=== PATIENT | male | born 1990 | race Caucasian/White ===

== ENCOUNTER 2017-03-23 18:40 | Emergency (ER) | payer OTHER ==
[2017-03-23 18:54] VITALS: BP 159/97
--- NOTE | 2017-03-23 19:55 | EDM.PDOC ---
ED HPI GENERAL MEDICAL PROBLEM - General Chief Complaint: Upper Extremity Injury/Pain Stated Complaint: RIGHT ARM INJURY Time Seen by Provider: 03/23/17 19:00 Source of Information: Reports: Patient History Limitations: Reports: No Limitations - History of Present Illness INITIAL COMMENTS - FREE TEXT/NARRATIVE: 26 year old male presents for evaluation and treatment of an injury to the right arm. Injury occurred yesterday. Reports he was bowling. Patient bowels right handed. Reports at one point he was bowling and felt a pop in his arm and immediate pain. Report pain to the anterior, distal arm, weakness and decreased ROM. No numbness or tingling to the arm. No obvious deformity. Patient is left handed. Right Arm Pain Score (Numeric/FACES): 7 - Related Data Allergies Allergy/AdvReac Type Severity Reaction Status Date / Time No Known Allergies Allergy Verified 03/23/17 18:50 Home Meds: Home Meds Escitalopram [Lexapro] 20 mg PO DAILY 03/23/17 [History] Zolpidem Tartrate [Zolpidem Tartrate ER] 12.5 mg PO BEDTIME 03/23/17 [History] Past Medical History - Past Health History Medical/Surgical History: Denies Medical/Surgical History Psychiatric History: Reports: Anxiety, Depression Social & Family History - Tobacco Use Smoking Status *Q: Never Smoker - Recreational Drug Use Recreational Drug Use: No Review of Systems - Review of Systems Review Of Systems: See Below Musculoskeletal: Reports: Arm Pain (right anterior, distal arm), Other (no obvious deformity; reports weakness and decreased ROM with the right arm) Skin: Denies: Bruising, Wound Neurological: Denies: Numbness, Tingling ED EXAM, GENERAL - Physical Exam Exam: See Below Exam Limited By: No Limitations General Appearance: Alert, WD/WN, No Apparent Distress Throat/Mouth: Normal Inspection, Normal Voice, No Airway Compromise Neck: Normal Inspection, Supple, Non-Tender Respiratory/Chest: No Respiratory Distress, Lungs Clear, Normal Breath Sounds Cardiovascular: Normal Peripheral Pulses, Regular Rate, Rhythm, No Murmur Peripheral Pulses: 2+: Radial (L), Radial (R) Extremities: Normal Inspection, Normal Capillary Refill, Limited Range of Motion (pain with supination and pronation of the right arm; pain with flexion and extension of the right arm), Other (no obvious deformity appreciated) Neurological: Alert, Oriented, Normal Cognition Psychiatric: Normal Affect, Normal Mood Skin Exam: Warm, Dry, Normal Color. No: Ecchymosis, Erythema Course - Vital Signs Last Recorded V/S: Last Vital Signs Temp 36.7 C 03/23/17 18:51 Pulse 120 H 03/23/17 18:51 Resp BP 159/97 H 03/23/17 18:51 Pulse Ox 97 03/23/17 18:51 - Radiology Interpretation Free Text/Narrative:: xray of the right humerus shows no acute fractures or dislocations. - Re-Assessments/Exams Free Text/Narrative Re-Assessment/Exam: 03/23/17 19:50 I reviewed the xray results with the patient. I feel he likely has a partial biceps tendon rupture. Also possible he may have biceps tendonitis given the repetitive motion of bowling. I will place him in an arm sling and have him follow up with orthopedics. Departure - Departure Time of Disposition: 19:53 Disposition: Home, Self-Care 01 Condition: Good Clinical Impression: Traumatic partial tear of biceps tendon - Discharge Information Instructions: Biceps Tendon Disruption (Proximal) With Rehab-[facility] Referrals: Ivory Thakkar PA [Primary Care Provider] - Jacobo Buchanan MD [Physician] - Forms: ED Department Discharge Additional Instructions: Wear the arm sling at all times. Remove the arm from the sling 3 or 4 times a day and perform pendulum arm circles prevent frozen shoulder. [id number] Tylenol or Motrin as needed for pain relief. make sure you are icing the area. Follow up with orthopedics this week. Recommend [facility]. Please call to schedule with Dr. Rollins. Please return to the ER if your symptoms change or worsen.
--- NOTE | 2017-03-24 10:24 | CR ---
Right humerus: Two views of the right humerus were obtained. Technique is somewhat less than optimal. Within this limitation, no discrete fracture or other abnormality is appreciated. No soft tissue calcifications are present. Impression: 1. Less than optimal study. Nothing acute is definitely seen within the humerus. Diagnostic code #2
== END 2017-03-23 20:10 | disposition home or self-care (01) ==
LOC: JD.ED 18:40
DX: S46.211A Strain of muscle, fascia and tendon of other parts of biceps, right arm, initial encounter (principal); Z79.899 Other long term (current) drug therapy; X50.1XXA Overexertion from prolonged static or awkward postures, initial encounter
CPT/HCPCS: 73060-26-RT; 73060-RT; 99283; 99284

== ENCOUNTER 2017-04-17 07:28 | Day surgery (SDC) | payer OTHER ==
[~2017-04-17 07:28] MED LIST: Lidocaine 1%/Sod Bicarbonate in NS 8.4% 1 ML Syringe IV PRN; Sodium Chloride 0.9% 10 ML Syringe FLUSH PRN
[2017-04-17] MEDS: Lactated Ringers 1,000 ML IV SCH ×2 (07:45→12:15)
--- NOTE | 2017-04-17 08:08 | PCM.PREANE ---
Preanesthetic Assessment - Procedure Proposed Procedure: Right distal bicep tendon repair - Anesthesia/Transfusion/Family Hx Anesthesia History: No Prior Anesthesia Family History of Anesthesia Reaction: No Transfusion History: No Prior Transfusion(s) - Review of Systems General: No Symptoms Pulmonary: No Symptoms Cardiovascular: Other (HTN ) Gastrointestinal: No Symptoms Neurological: No Symptoms Other: Reports: Easy Bruising, Depression, Anxiety - Physical Assessment NPO Status Date: 04/16/17 NPO Status Time: 22:00 Pulse: 81 O2 Sat by Pulse Oximetry: 95 Respiratory Rate: 16 Blood Pressure: 147/76 Temperature: 37.2 C Height: 1.85 m Weight: 124 kg ASA Class: 2 Mental Status: Alert & Oriented x3 Airway Class: Mallampati = 1 Dentition: Reports: Normal Dentition Thyro-Mental Finger Breadths: 3 Mouth Opening Finger Breadths: 3 ROM/Head Extension: Full Lungs: Clear to Auscultation, Normal Respiratory Effort Cardiovascular: Regular Rate, Regular Rhythm - Lab Values: Laboratory Last Values MRSA (PCR) Negative 04/15/17 16:25 - Allergies Allergies/Adverse Reactions: Allergies Allergy/AdvReac Type Severity Reaction Status Date / Time No Known Allergies Allergy Verified 04/16/17 12:40 - Blood Blood Available: No Product(s) Available: None - Anesthesia Plan Pre-Op Medication Ordered: None - Acknowledgements Anesthesia Type Planned: General Anesthesia (OETT) Pt an Appropriate Candidate for the Planned Anesthesia: Yes Alternatives and Risks of Anesthesia Discussed w Pt/Guardian: Yes Pt/Guardian Understands and Agrees with Anesthesia Plan: Yes PreAnesthesia Questionnaire - Past Health History Medical/Surgical History: Denies Medical/Surgical History HEENT History: Reports: None Cardiovascular History: Reports: Hypertension Respiratory History: Reports: Sleep Apnea Other Respiratory History: self diagnosed sleep apnea Gastrointestinal History: Reports: Other (See Below) Other Gastrointestinal History: increased liver enzymes Genitourinary History: Reports: Other (See Below) Other Genitourinary History: erectile dysfunction 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 Musculoskeletal History: Reports: Other (See Below) Other Musculoskeletal History: biceps tendon rupture, right elbow pain Neurological History: Reports: None Psychiatric History: Reports: Anxiety, Depression, Other (See Below) Other Psychiatric History: insomnia Endocrine/Metabolic History: Reports: None Hematologic History: Reports: None Immunologic History: Reports: None Oncologic (Cancer) History: Reports: None Dermatologic History: Reports: Other (See Below) Other Dermatologic History: dyshydrosis - Past Surgical History Head Surgeries/Procedures: Reports: None HEENT Surgical History: Reports: None Cardiovascular Surgical History: Reports: None Respiratory Surgical History: Reports: None GI Surgical History: Reports: None Female Surgical History: Reports: None Male Surgical History: Reports: None Endocrine Surgical History: Reports: None Neurological Surgical History: Reports: None Musculoskeletal Surgical History: Reports: None Oncologic Surgical History: Reports: None - SUBSTANCE USE Smoking Status *Q: Never Smoker Second Hand Smoke Exposure: No Recreational Drug Use History: No - HOME MEDS Home Medications: Home Meds Escitalopram [Lexapro] 20 mg PO DAILY 03/23/17 [History] Ibuprofen 800 mg PO Q6H PRN 04/16/17 [History] Multivitamin [Poly-Vitamin] 1 tab PO DAILY 04/16/17 [History] Zolpidem Tartrate [Zolpidem Tartrate ER] 12.5 mg PO BEDTIME PRN 04/16/17 [ History] - CURRENT (IN HOUSE) MEDS Current Meds: Current Medications Lactated Ringer's (Ringers, Lactated) 1,000 mls @ 125 mls/hr IV ASDIRECTED JOANN Lidocaine/Sodium Bicarbonate (Buffered Lidocaine 1% In Ns 8.4%) 0.25 ml IV ONETIME PRN PRN Reason: Prior to IV Start Sodium Chloride (Saline Flush) 10 ml FLUSH ASDIRECTED PRN PRN Reason: Keep Vein Open
--- NOTE | 2017-04-17 08:42 | PCM48HPAN ---
Post Anesthesia Note - EVALUATION WITHIN 48HRS OF ANESTHETIC Vital Signs in Normal Range: Yes Patient Participated in Evaluation: Yes Respiratory Function Stable: Yes Airway Patent: Yes Cardiovascular Function Stable: Yes Hydration Status Stable: Yes Pain Control Satisfactory: Yes Nausea and Vomiting Control Satisfactory: Yes Mental Status Recovered: Yes
[2017-04-17] MEDS ORDERED: Midazolam 1 MG/ML 2 ML SDV ONE (09:02)
[2017-04-17] MEDS ORDERED: Propofol 200 MG/20 ML SDV ONE ×2 (09:02→09:10)
[2017-04-17] MEDS ORDERED: Ondansetron 4 MG/2 ML SDV ONE (09:03)
[2017-04-17] MEDS ORDERED: Lidocaine 1% 4 ML ONE (09:03)
[2017-04-17] MEDS ORDERED: methylPREDNISolone Sodium Succinate 125 MG/2 ML SDV ONE (09:03)
[2017-04-17] MEDS ORDERED: Rocuronium 50 MG/5 ML Vial ONE (09:03)
[2017-04-17] MEDS ORDERED: fentaNYL 250 MCG/5 ML SDV ONE (09:03)
[2017-04-17] MEDS ORDERED: ceFAZolin 1 GM Vial ONE (09:58)
[2017-04-17] MEDS ORDERED: Phenylephrine 1% 10 MG/ML SDV ONE (10:10)
[2017-04-17] MEDS: Bupivacaine 0.25% 30 ML SDV ONE ×2 (10:21→10:50)
[2017-04-17] MEDS ORDERED: Neostigmine Methylsulfate 1 MG/ML 5 ML Syringe ONE (11:02)
[2017-04-17] MEDS ORDERED: diphenhydrAMINE 50 MG/ML SDV IVPUSH PRN (11:18)
[2017-04-17] MEDS ORDERED: fentaNYL 100 MCG/2 ML SDV IVPUSH PRN (11:18)
[2017-04-17] MEDS ORDERED: HYDROmorphone 0.5 MG/0.5 ML Syringe IVPUSH PRN (11:18)
[2017-04-17] MEDS ORDERED: Ondansetron 4 MG/2 ML SDV IVPUSH PRN (11:18)
[2017-04-17] MEDS ORDERED: Meperidine PF 50 MG/ML Syringe IVPUSH PRN (11:18)
--- NOTE | 2017-04-17 11:21 | PCM.POSTAN ---
POST ANESTHESIA ASSESSMENT - MENTAL STATUS Mental Status: Alert, Oriented - VITAL SIGNS Pulse Rate: 98 SaO2: 98 Resp Rate: 20 Blood Pressure: 134/53 Temperature: 37.3 C - RESPIRATORY Respiratory Status: Respiratory Rate WNL, Airway Patent, O2 Saturation Stable, Supplemental Oxygen - CARDIOVASCULAR CV Status: Pulse Rate WNL, Blood Pressure Stable - GASTROINTESTINAL GI Status: No Symptoms - PAIN Pain Score: 0 - POST OP HYDRATION Hydration Status: Adequate & Stable
--- NOTE | 2017-04-17 11:44 | CR ---
Elbow: Five fluoroscopic spot views were obtained of the right elbow. Study obtained utilizing C-arm device. Finding shows biceps tendon repair with anchoring to the radius. Fluoroscopy time given as 16.0 seconds. Impression: 1. Operative study as noted above. Diagnostic code #2
[2017-04-17] MEDS ORDERED: Acetaminophen/HYDROcodone 325-5 MG Tab PO ONE (12:30)
[2017-04-17 14:29] VITALS: BP 148/68
--- NOTE | 2017-04-28 07:14 | PCM.OPNOTE ---
- General Post-Op/Procedure Note Date of Surgery/Procedure: 04/17/17 Operative Procedure(s): right distal biceps tendon repair Pre Op Diagnosis: right distal biceps tendon rupture Post-Op Diagnosis: Same Anesthesia Technique: General LMA, Local Primary Surgeon: Monico Mccarty Anesthesia Provider: Osman Eldridge Hospitality Workers: Sayda Martinez Hospitality Workers: Florence Langley EBRaine in mLs: 10 Complications: None Condition: Good
--- NOTE | 2017-04-28 08:32 | OR ---
DATE OF OPERATION: 04/17/2017 SURGEON: Monico Mccarty MD OPERATION PERFORMED: Right distal biceps tendon repair. PREOPERATIVE DIAGNOSIS: Right distal biceps tendon rupture. POSTOPERATIVE DIAGNOSIS: Right distal biceps tendon rupture. ANESTHESIA: General LMA with local. ANESTHESIA PROVIDER: Osman Eldridge. LECTURER IN COMPUTER SCIENCE: Florence Langley PA-C. ESTIMATED BLOOD LOSS: 10 mL. COMPLICATIONS: None. CONDITION: Stable. DESCRIPTION OF PROCEDURE: The patient was identified in the preop holding area. Proper site was marked and identified by the surgeon. The patient was taken back to the operating theater, where after adequate anesthesia, the patient's right upper extremity had a nonsterile tourniquet applied. It was then sterilely prepped and draped in the usual sterile fashion. OR-wide time-out was performed. The patient did receive 2 grams of IV Ancef. At this time, right upper extremity was exsanguinated. Tourniquet was insufflated to 225 mmHg. A standard transverse incision was made, centered over the distal biceps tendon radial tuberosity. Blunt dissection was taken down. The lateral antebrachial cutaneous nerve was retracted and protected. The distal biceps tendon was found to be stretched and only partially torn off its attachment. At this time, the attachment was completely detached and a whipstitch with a #2 FiberWire was placed through the end of the tendon after it had been shortened. At this time, a guidepin was placed in the old radial tuberosity roughly 30 degrees ulnar and 30 degrees distal angulation. This was then placed bi-cortically. An 8 mm reamer was then used just for the first cortex only. At this time, the EndoButton was loaded on the suture ends and it was placed through the far cortex and it was flipped. This tendon was then shuttled into the previous screw and a knot was tied over the top of the tendon. The 8 mm Arthrex interference screw was then placed pushing the tendon more radial. At this time, it was found to have adequate fixation with the interference screw. Another knot was tied over the top of the interference screw and, at this time, adequate saline was irrigated through the wound. 3-0 Vicryl was used for closure of the subcutaneous tissue and Monocryl was used for the skin. The patient was placed in a sterile soft dressing and a posterior slab splint. He tolerated the procedure well. MMODAL /[id number]
== END 2017-04-17 14:00 | disposition home or self-care (01) ==
LOC: JD.SDS 07:28
PROVIDERS: ATTEND Orthopaedic Surgery
DX: S46.211A Strain of muscle, fascia and tendon of other parts of biceps, right arm, initial encounter (principal); M25.521 Pain in right elbow; I10 Essential (primary) hypertension; F41.9 Anxiety disorder, unspecified; G47.00 Insomnia, unspecified; F32.9 Major depressive disorder, single episode, unspecified; G47.30 Sleep apnea, unspecified; N52.9 Male erectile dysfunction, unspecified; R94.5 Abnormal results of liver function studies; Z79.899 Other long term (current) drug therapy; Z87.891 Personal history of nicotine dependence
CPT/HCPCS: 24342; 36415; 76000; 85025; 85610; 87641; A9270; C1776; J0690; J1170; J2250; J2370; J2405; J2710; J2930; J3010; J3490; J7120; 01710; J2704

== ENCOUNTER 2017-10-19 09:14 | Emergency (ER) | payer OTHER ==
[2017-10-19 09:23] VITALS: BP 145/73
--- NOTE | 2017-10-19 10:00 | EDM.PDOC ---
ED HPI GENERAL MEDICAL PROBLEM - General Chief Complaint: Upper Extremity Injury/Pain Stated Complaint: LT ARM INJURY PT STS TORN BICEP Time Seen by Provider: 10/19/17 09:35 Source of Information: Reports: Patient, RN Notes Reviewed - History of Present Illness INITIAL COMMENTS - FREE TEXT/NARRATIVE: 27-year-old male injured left biceps in a weightlifting competition yesterday afternoon. He was lifting about 650 pounds. He felt a sudden snap or pop of the left arm with sudden onset of pain left lower anterior biceps area of arm. The pain continues today. He has good range of motion but that does cause discomfort left anterior lower arm. Left Arm Pain Score (Numeric/FACES): 6 - Related Data Allergies Allergy/AdvReac Type Severity Reaction Status Date / Time No Known Allergies Allergy Verified 04/16/17 12:40 Home Meds: Home Meds Escitalopram [Lexapro] 20 mg PO DAILY 03/23/17 [History] Ibuprofen 800 mg PO Q6H PRN 04/16/17 [History] Multivitamin [Poly-Vitamin] 1 tab PO DAILY 04/16/17 [History] Zolpidem Tartrate [Zolpidem Tartrate ER] 12.5 mg PO BEDTIME PRN 04/16/17 [ History] traMADol [Ultram] 50 mg PO Q6H PRN #20 tab 10/19/17 [Rx] Past Medical History - Past Health History Medical/Surgical History: Denies Medical/Surgical History HEENT History: Reports: None Cardiovascular History: Reports: Hypertension Respiratory History: Reports: Sleep Apnea Other Respiratory History: self diagnosed sleep apnea Gastrointestinal History: Reports: Other (See Below) Other Gastrointestinal History: increased liver enzymes Genitourinary History: Reports: Other (See Below) Other Genitourinary History: erectile dysfunction 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 Musculoskeletal History: Reports: Other (See Below) Other Musculoskeletal History: biceps tendon rupture, right elbow pain Neurological History: Reports: None Psychiatric History: Reports: Anxiety, Depression, Other (See Below) Other Psychiatric History: insomnia Endocrine/Metabolic History: Reports: None Hematologic History: Reports: None Immunologic History: Reports: None Oncologic (Cancer) History: Reports: None Dermatologic History: Reports: Other (See Below) Other Dermatologic History: dyshydrosis - Past Surgical History Head Surgeries/Procedures: Reports: None HEENT Surgical History: Reports: None Cardiovascular Surgical History: Reports: None Respiratory Surgical History: Reports: None GI Surgical History: Reports: None Male Surgical History: Reports: None Endocrine Surgical History: Reports: None Neurological Surgical History: Reports: None Musculoskeletal Surgical History: Reports: None Oncologic Surgical History: Reports: None Social & Family History - Family History Family Medical History: Noncontributory - Tobacco Use Smoking Status *Q: Never Smoker Second Hand Smoke Exposure: No - Caffeine Use Caffeine Use: Reports: Energy Drinks - Recreational Drug Use Recreational Drug Use: No Review of Systems - Review of Systems Review Of Systems: See Below Constitutional: Reports: No Symptoms Mouth/Throat: Reports: No Symptoms Respiratory: Denies: Shortness of Breath Cardiovascular: Denies: Chest Pain GI/Abdominal: Denies: Nausea, Vomiting Musculoskeletal: Reports: Arm Pain, Muscle Pain (Left lower biceps) Skin: Reports: No Symptoms ED EXAM, GENERAL - Physical Exam Exam: See Below General Appearance: Alert, No Apparent Distress Head: Atraumatic Respiratory/Chest: No Respiratory Distress Extremities: Other (There is some localized tenderness and a palpable deformity , loss of fullness left lower anterior biceps. He does have good range of motion , good flexion strength but that does cause increased discomfort. No bruising visible, no visible swelling at this point.) Neurological: No Motor/Sensory Deficits Course - Vital Signs Last Recorded V/S: Last Vital Signs Temp 98.6 F 10/19/17 09:21 Pulse 93 10/19/17 09:21 Resp 18 10/19/17 09:21 BP 145/73 H 10/19/17 09:21 Pulse Ox 97 10/19/17 09:21 - Re-Assessments/Exams Free Text/Narrative Re-Assessment/Exam: 10/19/17 10:34 He has a tear of what appears to be the distal muscle left biceps, have ordered an MRI, discharge instructions as documented. Departure - Departure Time of Disposition: 09:56 Disposition: Home, Self-Care 01 Condition: Fair Clinical Impression: Biceps muscle tear Qualifiers: Encounter type: initial encounter Laterality: left Qualified Code(s): S46.112A - Strain of muscle, fascia and tendon of long head of biceps, left arm, initial encounter - Discharge Information Prescriptions: traMADol [Ultram] 50 mg PO Q6H PRN #20 tab PRN Reason: Pain Referrals: PCP,Unknown [Ordering Only Provider] - Forms: ED Department Discharge Additional Instructions: Left arm sling or arm cradle as needed for comfort or support, rest arm, intermittent ice packs as needed for swelling, no heavy lifting left arm, Tylenol 3-4 times daily as needed for discomfort, you may take tramadol in between doses if needed for more severe pain. An order for an MRI of your left arm has been written. Radiology will call you tomorrow morning to set up a time to come in and get that done. Follow up with Dr Mccarty, Orthopedist, call his clinic for appointment tomorrow morning for appt.
== END 2017-10-19 10:15 | disposition home or self-care (01) ==
LOC: JD.ED 09:14
DX: S46.112A Strain of muscle, fascia and tendon of long head of biceps, left arm, initial encounter (principal); I10 Essential (primary) hypertension; F41.9 Anxiety disorder, unspecified; F32.9 Major depressive disorder, single episode, unspecified; Z79.899 Other long term (current) drug therapy; X50.0XXA Overexertion from strenuous movement or load, initial encounter
CPT/HCPCS: 99283

== ENCOUNTER 2017-10-23 09:03 | Day surgery (SDC) | payer OTHER ==
[~2017-10-23 09:03] MED LIST changes: +Lactated Ringers 1,000 ML IV SCH; +Lidocaine 1%/Sod Bicarbonate in NS 8.4% 1 ML Syringe IDERM PRN; -Lidocaine 1%/Sod Bicarbonate in NS 8.4% 1 ML Syringe IV PRN; +Sodium Chloride 0.9% 1,000 ML IV SCH
[2017-10-23] MEDS ORDERED: Bupivacaine 0.25% 30 ML SDV ONE (09:42)
--- NOTE | 2017-10-23 09:52 | PCM.PREANE ---
Preanesthetic Assessment - Procedure Proposed Procedure: Left Distal Bicepts tendon Repair - Anesthesia/Transfusion/Family Hx Anesthesia History: No Prior Anesthesia Family History of Anesthesia Reaction: No Transfusion History: No Prior Transfusion(s) Intubation History: Unknown - Review of Systems General: No Symptoms Pulmonary: No Symptoms Cardiovascular: No Symptoms Gastrointestinal: No Symptoms Neurological: No Symptoms Other: Reports: None - Physical Assessment NPO Status Date: 10/23/17 NPO Status Time: 22:00 Pulse: 73 O2 Sat by Pulse Oximetry: 95 Respiratory Rate: 12 Blood Pressure: 143/63 ASA Class: 2 Mental Status: Alert & Oriented x3 Airway Class: Mallampati = 3 Dentition: Reports: Normal Dentition Thyro-Mental Finger Breadths: 3 Mouth Opening Finger Breadths: 5 ROM/Head Extension: Full Lungs: Clear to Auscultation, Normal Respiratory Effort Cardiovascular: Regular Rate, Regular Rhythm - Lab Values: Laboratory Last Values WBC 6.69 K/mm3 (4.23-9.07) 10/21/17 11:24 RBC 5.30 M/mm3 (4.63-6.08) 10/21/17 11:24 Hgb 16.2 gm/L (13.7-17.5) 10/21/17 11:24 Hct 47.9 % (40.1-51.0) 10/21/17 11:24 MCV 90.4 fl (79.0-92.2) 10/21/17 11:24 MCH 30.6 pg (25.7-32.2) 10/21/17 11:24 MCHC 33.8 g/dl (32.2-35.5) 10/21/17 11:24 RDW Std Deviation 45.8 fL (35.1-43.9) H 10/21/17 11:24 Plt Count 344 K/mm3 (163-337) H 10/21/17 11:24 MPV 9.6 fl (9.4-12.3) 10/21/17 11:24 Neut % (Auto) 47.0 % (34.0-67.9) 10/21/17 11:24 Lymph % (Auto) 40.4 % (21.8-53.1) 10/21/17 11:24 [place] % (Auto) 10.9 % (5.3-12.2) 10/21/17 11:24 Eos % (Auto) 1.3 (0.8-7.0) 10/21/17 11:24 Baso % (Auto) 0.3 % (0.1-1.2) 10/21/17 11:24 Neut # (Auto) 3.14 K/mm3 (1.78-5.38) 10/21/17 11:24 Lymph # (Auto) 2.70 K/mm3 (1.32-3.57) 10/21/17 11:24 [place] # (Auto) 0.73 K/mm3 (0.30-0.82) 10/21/17 11:24 Eos # (Auto) 0.09 K/mm3 (0.04-0.54) 10/21/17 11:24 Baso # (Auto) 0.02 K/mm3 (0.01-0.08) 10/21/17 11:24 Sodium 140 mEq/L (136-145) 10/21/17 11:24 Potassium 4.2 mEq/L (3.5-5.1) 10/21/17 11:24 Chloride 103 mEq/L (98-107) 10/21/17 11:24 Carbon Dioxide 28 mEq/L (21-32) 10/21/17 11:24 Anion Gap 13.2 (5-15) 10/21/17 11:24 BUN 12 mg/dL (7-18) 10/21/17 11:24 Creatinine 1.7 mg/dL (0.7-1.3) H 10/21/17 11:24 Est Cr Clr Drug Dosing TNP 10/21/17 11:24 Estimated GFR (MDRD) 49 mL/min (>60) 10/21/17 11:24 BUN/Creatinine Ratio 7.1 (14-18) L 10/21/17 11:24 Glucose 80 mg/dL (74-106) 10/21/17 11:24 Calcium 9.2 mg/dL (8.5-10.1) 10/21/17 11:24 Total Bilirubin 0.5 mg/dL (0.2-1.0) 10/21/17 11:24 AST 32 U/L (15-37) 10/21/17 11:24 ALT 71 U/L (16-63) H 10/21/17 11:24 Alkaline Phosphatase 43 U/L (46-116) L 10/21/17 11:24 Total Protein 7.8 g/dl (6.4-8.2) 10/21/17 11:24 Albumin 4.1 g/dl (3.4-5.0) 10/21/17 11:24 Globulin 3.7 gm/dL 10/21/17 11:24 Albumin/Globulin Ratio 1.1 (1-2) 10/21/17 11:24 MRSA (PCR) Negative 10/21/17 11:30 - Allergies Allergies/Adverse Reactions: Allergies Allergy/AdvReac Type Severity Reaction Status Date / Time No Known Allergies Allergy Verified 10/22/17 15:56 - Blood Blood Available: No - Anesthesia Plan Pre-Op Medication Ordered: None - Acknowledgements Anesthesia Type Planned: General Anesthesia Pt an Appropriate Candidate for the Planned Anesthesia: Yes Alternatives and Risks of Anesthesia Discussed w Pt/Guardian: Yes Pt/Guardian Understands and Agrees with Anesthesia Plan: Yes PreAnesthesia Questionnaire - Past Health History Medical/Surgical History: Denies Medical/Surgical History HEENT History: Reports: None Cardiovascular History: Reports: Hypertension Respiratory History: Reports: Sleep Apnea Other Respiratory History: self diagnosed sleep apnea Gastrointestinal History: Reports: Other (See Below) Other Gastrointestinal History: increased liver enzymes Genitourinary History: Reports: Other (See Below) Other Genitourinary History: erectile dysfunction 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 Musculoskeletal History: Reports: Other (See Below) Other Musculoskeletal History: biceps tendon rupture, right elbow pain Neurological History: Reports: None Psychiatric History: Reports: Anxiety, Depression, Other (See Below) Other Psychiatric History: insomnia Endocrine/Metabolic History: Reports: None Hematologic History: Reports: None Immunologic History: Reports: None Oncologic (Cancer) History: Reports: None Dermatologic History: Reports: Eczema (bilateral hands), Other (See Below) Other Dermatologic History: dyshydrosis - Past Surgical History Head Surgeries/Procedures: Reports: None HEENT Surgical History: Reports: None Cardiovascular Surgical History: Reports: None Respiratory Surgical History: Reports: None GI Surgical History: Reports: None Female Surgical History: Reports: None Male Surgical History: Reports: None Endocrine Surgical History: Reports: None Neurological Surgical History: Reports: None Musculoskeletal Surgical History: Reports: Other (See Below) Other Musculoskeletal Surgeries/Procedures:: right distal biceps tendon repair Oncologic Surgical History: Reports: None - SUBSTANCE USE Smoking Status *Q: Former Smoker Recreational Drug Use History: No - HOME MEDS Home Medications: Home Meds Escitalopram [Lexapro] 20 mg PO DAILY 03/23/17 [History] Multivitamin [Poly-Vitamin] 1 tab PO DAILY 04/16/17 [History] Zolpidem Tartrate [Zolpidem Tartrate ER] 12.5 mg PO BEDTIME PRN 04/16/17 [ History] Ascorbic Acid [Vitamin C] 1,000 mg PO QAM 10/22/17 [History] Ascorbic Acid [Vitamin C] 500 mg PO QPM 10/22/17 [History] Calcium Citrate 800 mg PO DAILY 10/22/17 [History] Cholecalciferol (Vitamin D3) [Vitamin D3] 5,000 unit PO TID 10/22/17 [History] Fish Oil/DHA/EPA [Fish Oil 1,200 MG] 1,200 mg PO TID 10/22/17 [History] Safflower Oil/Linoleic Acid,Co [Cla Softgel] 1,000 mg PO TID 10/22/17 [History] Testosterone Cypionate [Depo-Testosterone] 200 mg IM ASDIRECTED 10/22/17 [ History] Acetaminophen/HYDROcodone [[place] 325-5 MG] 1 - 2 tab PO Q6H PRN #40 tablet 10/23 [Rx] Cyclobenzaprine [Flexeril] 10 mg PO Q8H PRN #40 tab 10/23/17 [Rx] - CURRENT (IN HOUSE) MEDS Current Meds: Current Medications Sodium Chloride (Normal Saline) 1,000 mls @ 125 mls/hr IV ASDIRECTED JOANN Stop: 10/23/17 23:00 Last Admin: 10/23/17 09:37 Dose: 125 mls/hr Lidocaine/Sodium Bicarbonate (Buffered Lidocaine 1% In Ns 8.4%) 0.25 ml IDERM ONETIME PRN PRN Reason: Prior to IV Start Stop: 10/23/17 18:00 Last Admin: 10/23/17 09:30 Dose: 0.25 ml Sodium Chloride (Saline Flush) 10 ml FLUSH ASDIRECTED PRN PRN Reason: Keep Vein Open Stop: 10/23/17 18:00 Discontinued Medications Bupivacaine HCl (Marcaine 0.25%) Confirm Administered Dose 30 ml .ROUTE .STK- MED ONE Stop: 10/23/17 09:43 Lactated Ringer's (Ringers, Lactated) 1,000 mls @ 125 mls/hr IV ASDIRECTED [facility] Stop: 10/23/17 23:00
[2017-10-23] MEDS ORDERED: Midazolam 1 MG/ML 2 ML SDV ONE (09:54)
[2017-10-23] MEDS ORDERED: Lidocaine 1% 4 ML ONE (09:54)
[2017-10-23] MEDS ORDERED: fentaNYL 250 MCG/5 ML SDV ONE (09:54)
[2017-10-23] MEDS ORDERED: ceFAZolin 1 GM Vial ONE ×2 (09:54→10:22)
[2017-10-23] MEDS ORDERED: Rocuronium 50 MG/5 ML Vial ONE (09:54)
[2017-10-23] MEDS ORDERED: Propofol 200 MG/20 ML SDV ONE ×2 (09:54→10:13)
[2017-10-23] MEDS ORDERED: Ondansetron 4 MG/2 ML SDV ONE (09:54)
[2017-10-23] MEDS ORDERED: Lactated Ringers 1,000 ML ONE ×2 (10:39→11:31)
[2017-10-23] MEDS ORDERED: Meperidine PF 50 MG/ML Syringe ONE (11:58)
[2017-10-23] MEDS ORDERED: Meperidine PF 50 MG/ML Syringe IVPUSH PRN (12:00)
--- NOTE | 2017-10-23 12:00 | PCM.POSTAN ---
POST ANESTHESIA ASSESSMENT - MENTAL STATUS Mental Status: Alert, Oriented - VITAL SIGNS Pulse Rate: 92 SaO2: 100 Resp Rate: 16 Blood Pressure: 95/46 Temperature: 36.2 C - RESPIRATORY Respiratory Status: Respiratory Rate WNL, Airway Patent, O2 Saturation Stable, Supplemental Oxygen - CARDIOVASCULAR CV Status: Pulse Rate WNL, Blood Pressure Stable - GASTROINTESTINAL GI Status: No Symptoms - PAIN Pain Score: 0 - POST OP HYDRATION Hydration Status: Adequate & Stable - OBSERVATIONS Free Text/Narrative:: no anesthesia complications noted
[2017-10-23] MEDS ORDERED: Meperidine PF 50 MG/ML Syringe IVPUSH ONE (12:01)
[2017-10-23] MEDS ORDERED: fentaNYL 100 MCG/2 ML SDV ONE (12:03)
[2017-10-23] MEDS: fentaNYL 100 MCG/2 ML SDV IVPUSH PRN ×3 (12:04→12:23)
[2017-10-23] MEDS: HYDROmorphone 0.5 MG/0.5 ML Syringe IVPUSH PRN ×2 (12:38→12:53)
[2017-10-23] MEDS ORDERED: Acetaminophen/oxyCODONE 325-5 MG Tab PO PRN (13:11)
[2017-10-23] MEDS ORDERED: Cyclobenzaprine 10 MG Tab PO PRN (14:01)
--- NOTE | 2017-10-23 14:27 | CR ---
Right elbow: Three fluoroscopic spot views were obtained of the left elbow/proximal forearm Study shows evidence of biceps tendon repair surgery. Fluoroscopy time is given as 21.9 seconds. Impression: 1. Procedural study as noted above. Diagnostic code #2
[2017-10-23 15:23] VITALS: BP 95/46
--- NOTE | 2017-10-23 15:23 | PCM48HPAN ---
Post Anesthesia Note - EVALUATION WITHIN 48HRS OF ANESTHETIC Vital Signs in Normal Range: Yes Patient Participated in Evaluation: Yes Respiratory Function Stable: Yes Airway Patent: Yes Cardiovascular Function Stable: Yes Hydration Status Stable: Yes Pain Control Satisfactory: Yes Nausea and Vomiting Control Satisfactory: Yes Mental Status Recovered: Yes Pulse Rate: 92 Resp Rate: 16 Temperature: 36.2 C Blood Pressure: 95/46 - COMMENTS/OBSERVATIONS Free Text/Narrative:: no anesthesia complications noted
--- NOTE | 2017-10-23 22:58 | PCM.OPNOTE ---
- General Post-Op/Procedure Note Date of Surgery/Procedure: 10/23/17 Operative Procedure(s): left distal biceps tendon repair Pre Op Diagnosis: left distal biceps tendon rupture Post-Op Diagnosis: Same Anesthesia Technique: General LMA, Local Primary Surgeon: Monico Mccarty Anesthesia Provider: Jovana Heard Borderer: Florence Langley EBL in mLs: 25 Complications: None Condition: Good Free Text/Narrative:: Intake & Output 10/23/17 10/23/17 10/23/17 06:59 14:59 22:59 Intake Total 1310 Balance 1310
--- NOTE | 2017-10-24 00:15 | OR ---
DATE OF OPERATION: 10/23/2017 SURGEON: Monico Mccarty MD OPERATIVE PROCEDURE: Left distal biceps tendon repair. PREOPERATIVE DIAGNOSIS: Left distal biceps tendon rupture. POSTOPERATIVE DIAGNOSIS: Left distal biceps tendon rupture. ANESTHESIA: General LMA with local. ANESTHESIA PROVIDER: Delfino Eugene CRNA CASHIER SUPERVISOR: Florence Langley PA-C ESTIMATED BLOOD LOSS: 10 mL. COMPLICATIONS: None. CONDITION: Stable. DESCRIPTION OF PROCEDURE: The patient was identified in the preop holding area. Proper site was marked and identified by the surgeon. The patient was taken back to the operating theater where after adequate anesthesia, the patient's left upper extremity had a nonsterile tourniquet applied and was then sterilely prepped and draped in the usual sterile fashion. OR time-out was performed. The patient received 2 g IV Ancef. The left upper extremity was then exsanguinated. Tourniquet was insufflated to 250 mmHg. Standard transverse incision was made and centered over the radial tuberosity. This was taken down through the subcutaneous tissues. The previous biceps tendon was then identified and withdrawn proximally and was brought out through the wound bed with an Allis clamp. At this time, blunt dissection and Homans were placed around the radial tuberosity and a guide pin was placed in a center-center position angled 30 degrees ulnar and 30 degrees distal through the radial tuberosity. This was then placed in a bicortical fashion. An 8 mm reamer was then used through the near cortex only. At this time, the guide pin was removed. At this time, the distal biceps tendon was resected so that it could fit through an 8 mm guide and a whipstitch with a #2 FiberWire was then placed through the last 20 mm of the distal biceps tendon. At this time, an EndoButton flip button was then placed and the suture limbs were brought out pushed through the far cortex and the EndoButton was flipped. The suture limbs were then shuttled until the distal biceps tendon was down in the acorn drill hole. At this time, was found to have adequate fixation with the EndoButton. An #8 mm Arthrex interference screw was then placed on the radial and proximal side of the tendon pushing it more ulnar. At this time, he was found to have adequate fixation with both the EndoButton and the interference screw. The suture limbs were then tied over the top of the EndoButton and the interference screw and suture limbs were cut. Adequate saline was irrigated through the wound. 2-0 Vicryl was used subcutaneously and Monocryl was used for the skin. The patient was placed in a sterile soft dressing and a posterior slab splint and sent to PACU in stable condition. OPERATION PERFORMED: MMODAL /[id number]
== END 2017-10-23 14:40 | disposition home or self-care (01) ==
LOC: JD.SDS 09:03
PROVIDERS: ATTEND Orthopaedic Surgery
DX: S46.212A Strain of muscle, fascia and tendon of other parts of biceps, left arm, initial encounter (principal); F41.9 Anxiety disorder, unspecified; L30.1 Dyshidrosis [pompholyx]; N52.9 Male erectile dysfunction, unspecified; I10 Essential (primary) hypertension; G47.00 Insomnia, unspecified; F32.9 Major depressive disorder, single episode, unspecified; X58.XXXA Exposure to other specified factors, initial encounter; Z79.899 Other long term (current) drug therapy
CPT/HCPCS: 24341; 36415; 76000; 80048; 80053; 85025; 87641; A9270; C1776; J0690; J1170; J2001; J2175; J2250; J2405; J3010; J3490; J7040; J7120; J2704

== ENCOUNTER 2022-04-23 08:42 | Day surgery (SDC) | payer BC ==
[2022-04-23] MEDS ORDERED: Lactated Ringers 1,000 ML IV SCH (09:00)
[2022-04-23] MEDS ORDERED: fentaNYL 100 MCG/2 ML SDV ONE (09:25)
[2022-04-23] MEDS ORDERED: Propofol 200 MG/20 ML SDV ONE ×4 (09:25→10:43)
[2022-04-23] MEDS ORDERED: ePHEDrine 50 MG/ML SDV ONE (10:37)
[2022-04-23] MEDS ORDERED: Phenylephrine HCl In 0.9% NaCl 1 MG/10 ML Vial ONE (10:42)
[2022-04-23] MEDS ORDERED: Lidocaine 1% 4 ML ONE ×2 (11:02→11:17)
[2022-04-23] MEDS ORDERED: Albuterol/Ipratropium 3.0-0.5 MG/3 ML Neb Soln NEB SCH (11:08)
[2022-04-23] MEDS ORDERED: Albuterol/Ipratropium 3.0-0.5 MG/3 ML Neb Soln ONE (11:10)
[2022-04-23 11:22] VITALS: BP 122/103; PULSE 98
== END 2022-04-23 12:04 | disposition home or self-care (01) ==
LOC: JD.SDS 08:42
PROVIDERS: ATTEND Surgery
DX: R10.32 Left lower quadrant pain (principal); G47.33 Obstructive sleep apnea (adult) (pediatric); F41.8 Other specified anxiety disorders; I10 Essential (primary) hypertension; G47.00 Insomnia, unspecified; Z79.899 Other long term (current) drug therapy; Z83.79 Family history of other diseases of the digestive system; Z87.891 Personal history of nicotine dependence
CPT/HCPCS: 45380; J2704; J3010; J7120; J7620-GY

== ENCOUNTER 2024-10-25 07:30 | Day surgery (SDC) | payer BC ==
[2024-10-25] MEDS: Bupivacaine 0.25% 10 ML SDV ONE (08:26)
[2024-10-25] MEDS: Lidocaine 1% 10 ML MDV ONE (08:26)
[2024-10-25 08:48] VITALS: BP 129/65; PULSE 65
== END 2024-10-25 08:53 | disposition home or self-care (01) ==
LOC: JD.SDS 07:30
PROVIDERS: ATTEND Orthopaedic Surgery
DX: G56.11 Other lesions of median nerve, right upper limb (principal); G56.03 Carpal tunnel syndrome, bilateral upper limbs; I10 Essential (primary) hypertension; E78.5 Hyperlipidemia, unspecified; F41.9 Anxiety disorder, unspecified; F90.9 Attention-deficit hyperactivity disorder, unspecified type; Z79.899 Other long term (current) drug therapy
CPT/HCPCS: 64721; J0665; J2003

== ENCOUNTER 2024-11-10 06:00 | Day surgery (SDC) | payer BC ==
[2024-11-10] MEDS: Bupivacaine 0.25% 10 ML SDV ONE (07:53)
[2024-11-10] MEDS: Lidocaine 1% 10 ML MDV ONE (07:54)
[2024-11-10 08:20] VITALS: BP 140/69; PULSE 71
== END 2024-11-10 07:26 | disposition home or self-care (01) ==
LOC: JD.SDS 06:00
PROVIDERS: ATTEND Orthopaedic Surgery
DX: G56.12 Other lesions of median nerve, left upper limb (principal); G56.03 Carpal tunnel syndrome, bilateral upper limbs; I10 Essential (primary) hypertension; E78.5 Hyperlipidemia, unspecified; F41.8 Other specified anxiety disorders; E66.9 Obesity, unspecified; Z68.39 Body mass index [BMI] 39.0-39.9, adult; Z79.899 Other long term (current) drug therapy
CPT/HCPCS: 64721; J0665; J2003